=== PATIENT | female | born 1975 | race Caucasian/White ===

== ENCOUNTER 2019-12-04 20:09 | Emergency (ER) | payer BC ==
[~2019-12-04] VITALS: Ht 157.5 cm; Wt 54.0 kg
[2019-12-04 20:22] VITALS: Ht 157.5 cm; Wt 54.0 kg
[2019-12-04 22:45] VITALS: BP 119/69
== END 2019-12-04 22:45 | disposition home or self-care (01) ==
LOC: ED 20:09
DX: O75.1 Shock during or following labor and delivery (principal); Z3A.11 11 weeks gestation of pregnancy